=== PATIENT | male | born 1990 | race Caucasian/White ===

== ENCOUNTER 2024-11-09 11:00 | Emergency (ER) | payer SELFPAY ==
[2024-11-09 11:11] VITALS: BP 136/87
[2024-11-09 11:28] LABS: % Basophils 0.5 % (0-2); % Eosinophils 0.9 % (0-6); % Immature Granulocytes 0.5 % (0-0.5); % Lymphocytes 19.5 % (20.5-51.1); % Monocytes 8.3 % (1.7-9.3); % Neutrophils 70.3 % (42.2-75.2); Absolute Basophils 0.1 10^3/uL (0-0.2); Absolute Eosinophils 0.1 10^3/uL (0-0.7); Absolute Immature Granulocytes 0.1 10^3/uL (0-0.05); Absolute Lymphocytes 2.5 10^3/uL (1.2-3.4); Absolute Monocytes 1.1 10^3/uL (0.1-0.6); Absolute Neutrophils 8.9 10^3/uL (1.4-6.5); Hematocrit 47.7 % (39.0-52.0); Mean Corp Hgb Conc. 33.5 g/dL (33.0-37.0); Mean Corpuscular Volume 86.6 fL (80.0-94.0); Mean Platelet Volume 11.2 fL (7.4-10.4); Nucleated Red Blood Cells % 0 % (-); Platelet Count 234 10^3/uL (130-400); Red Blood Cell Count 5.51 10^6/uL (4.70-6.10); Red Cell Dist. Width 12.8 % (11.5-14.5); White Blood Cell Count 12.7 10^3/uL (4.8-10.8)
[2024-11-09 11:50] LABS: ALT (SGPT) 26 U/L (0-50); AST (SGOT) 24 U/L (17-59); Albumin 4.9 g/dl (3.5-5.0); Alkaline Phosphatase 78 U/L (38-126); Blood Urea Nitrogen 14 mg/dl (9-20); Calcium 9.9 mg/dl (8.4-10.2); Carbon Dioxide 25 mmol/L (22-30); Chloride 106 mmol/L (98-107); Glucose 116 mg/dl (70-99); Potassium 4.2 mmol/L (3.5-5.1); Sodium 142 mmol/L (135-145); Total Bilirubin 1.1 mg/dl (0.2-1.3); Total Protein 7.9 g/dl (6.3-8.2); eGFR > 60.00
[2024-11-09 12:31] VITALS: BMI 19.9
[2024-11-09 12:36] VITALS: BP 124/89
--- NOTE | 2024-11-09 12:51 | ED.GENMED ---
History of Present Illness
General
Chief Complaint: Throat Problem
Source: patient
Time Seen by Provider: 11/09/24 12:38
History of Present Illness
History of Present Illness:
34-year-old male with no significant past medical history presents to the emergency department for evaluation after he was diagnosed with a peritonsillar abscess on the left side 3 days ago, had been taking amoxicillin with relief of symptoms, was
brushing his teeth this morning when the abscess opened and was draining, patient became concerned so came to the ER for further evaluation patient states since getting to the emergency department his symptoms have seemingly resolved and he feels
significantly improved. He denies any fevers, chills, rigors, difficulty breathing, difficulty swallowing, drooling, spitting or any other concerns. Other than the amoxicillin patient has not been taking any other medications.
Past History
Past History
ED Past Medical History: None
ED Past Surgical History: None
Social History
Tobacco: Non-smoker
Alcohol: Occasional
Drug: None
Living: with family
Review of Systems
Review of Systems
All Other Systems: ROS reviewed and negative except as documented in HPI and ROS
Phy Exam
Physical Exam
Physical Exam:
GENERAL: Alert , in no apparent distress
EYE: conjunctiva clear
Head: Normocephalic atraumatic
NECK: Supple,
ENT: mmm. Mild left peritonsillar edema compared to the right but no active drainage,, no stridor, no trismus, no drooling or spitting
LUNGS: no acute respiratory distress
NEUROLOGICAL: Alert and oriented
SKIN: Warm and dry, skin intact.
MUSCULOSKELETAL: well perfused.
PSYCH: Normal and appropriate interaction.
Scores
Heart Failure Risk
Heart Failure Risk Score: Not Applicable
Heart Score for Chest Pain Patients
STEMI patient?: Not applicable
Withdrawal Assessment of Alcohol
Withdrawal Assessment Completed?: Not applicable
Course
Orders/Labs/Results
Orders:
Orders
11/09/24 11:19
CMP [Comprehensive Metabolic Panel] Urgent
Complete Blood Count/With Diff Urgent
Abnormal Lab Results
11/09/24
11:19
WBC 12.7 H 10^3/uL
(4.8-10.8)
MPV 11.2 H fL
(7.4-10.4)
Abs Immat Gran (auto) 0.1 H 10^3/uL
(0-0.05)
Absolute Neuts (auto) 8.9 H 10^3/uL
(1.4-6.5)
Absolute Monos (auto) 1.1 H 10^3/uL
(0.1-0.6)
Lymphocytes % 19.5 L %
(20.5-51.1)
Glucose 116 H mg/dl
(70-99)
11/09/24 11:19
11/09/24 11:19
Vital Signs
Initial and Last Documented VS:
Initial Vital Signs
Temp Pulse Resp BP Pulse Ox
98.7 F 89 20 136/87 99
11/09/24 11:11 11/09/24 11:11 11/09/24 11:11 11/09/24 11:11 11/09/24 11:11
Last Documented Vital Signs
Temp Pulse Resp BP Pulse Ox
98.7 F 83 16 124/89 99
11/09/24 11:11 11/09/24 12:36 11/09/24 12:36 11/09/24 12:36 11/09/24 12:36
MDM/Problems Addressed
Differential Diagnosis Includes:
Known peritonsillar abscess, strep pharyngitis, retropharyngeal abscess, mono
MDM/Problems Addressed:
34-year-old male presenting to the ER for evaluation after the peritonsillar abscess he was diagnosed with 3 days ago opened while brushing his teeth. Patient concerned and wanted to be further evaluated. He is without pain presently and feels
significant relief. Labs were initiated in triage which do show a mild leukocytosis. Given the abscess appears to be mostly drained and patient is without any respiratory or airway concerns I do think it would be reasonable for patient to be
discharged home. Would like to increase patient from amoxicillin to Augmentin and given there is still some mild edema and a Medrol Dosepak. I notified on-call ENT about this plan and they are in agreement and also believe patient can be
discharged home. Patient advised on return precautions to the ER and outpatient follow-up recommendations as needed.
*Pulse Oximetry
Patient hypoxic: no
*Critical Care Note
Total Time (30-74mins, 75-104mins- exclusive of procedures): Not Applicable
Patient Management
Discussion with other providers: Clinical Support Specialist
ED Attending Note
-
Portions of this chart may have been created with voice recognition software.� Occasional wrong word or��sound alike� substitutions may have occurred due to the inherent limitations of voice recognition software.
Discharge Plan
Departure
Patient Disposition: Home (Routine Discharge)
Date of Disposition: 11/09/24
Time of Disposition: 12:51
Patient with high blood pressure during this ER visit?: No
Discharge Problem:
Peritonsillar abscess
Instructions: Peritonsillar Abscess, Adult (DC)
Prescriptions:
New
amoxicillin-pot clavulanate 875-125 mg tablet
1 tab PO BID 7 Days Qty: 14 0RF
methylprednisolone [Medrol (Jack)] 4 mg tablets,dose pack
4 mg PO DIRECTED Qty: 21 0RF
Interventions
Interventions:
*Risk Screen - Suicide Last Done: 11/09/24 11:15
*General Assessment Last Done: 11/09/24 12:33
*Neglect/Abuse Screening Last Done: 11/09/24 12:33
*ED- Fall Risk Assessment Last Done: 11/09/24 12:33
*ED COVID-19 Vaccine History Last Done: 11/09/24 12:33
ED-EENT Assessment Last Done: 11/09/24 12:37
ED- Pulmonary Assessment Last Done: 11/09/24 12:37
Discharge Date and Time
Print Language: WOLOF
== END 2024-11-09 13:00 | disposition home or self-care (01) ==
LOC: EMR 11:00
PROVIDERS: Student in an Organized Health Care Education/Training Program; EMERGENCY PHYSICIAN Emergency Medicine
DX: J36 Peritonsillar abscess (principal)
CPT/HCPCS: 99283; 80053; 85025